=== PATIENT | female | born 1955 | race Two or more races ===

== ENCOUNTER 2020-12-21 09:55 | Outpatient (CLI) | payer OTHER | END 2020-12-21 10:01 | disposition home or self-care (01) | LOC: RAD 09:55 → MAMO-SONO 10:15 | PROVIDERS: ATTEND Internal Medicine Cardiovascular Disease | DX: Z12.31 Encounter for screening mammogram for malignant neoplasm of breast (principal); Z87.898 Personal history of other specified conditions; N64.59 Other signs and symptoms in breast; J44.1 Chronic obstructive pulmonary disease with (acute) exacerbation ==

== ENCOUNTER 2024-12-02 10:34 | Outpatient (CLI) | payer OTHER | END 2024-12-02 10:36 | disposition home or self-care (01) | LOC: RAD 10:34 | DX: F17.200 Nicotine dependence, unspecified, uncomplicated (principal); R07.9 Chest pain, unspecified; R05.3 Chronic cough; N64.4 Mastodynia; Z12.31 Encounter for screening mammogram for malignant neoplasm of breast ==

== ENCOUNTER → 2024-12-23 10:31 | Outpatient (CLI) | payer OTHER | END | disposition home or self-care (01) | LOC: NUCLEAR 10:31 | DX: M81.0 Age-related osteoporosis without current pathological fracture (principal) ==